=== PATIENT | female | born 1955 | race Caucasian/White ===

== ENCOUNTER 2017-05-19 07:58 | Inpatient (IN) ==
[2017-05-19] MEDS ORDERED: Ondansetron 4 MG/2 ML VIAL IVP ONE ×2 (08:07→11:18)
[2017-05-19] MEDS ORDERED: *HR* HYDROmorphone (PF) 1 MG/ML SYRINGE IVP ONE ×2 (08:07→11:18)
[2017-05-19 08:36] LABS: Basophils % 0.2 %; Eosinophils % 0.2 %; Hematocrit 44.7 % (35.3-44.9); Hemoglobin 14.2 g/dL (11.5-15.4); Immature Granulocytes % 0.5 % (0-4); Lymphocytes % 13.8 %; Mean Corpuscular HGB Conc 31.8 g/dL (31.6-35.5); Mean Corpuscular Hemoglobin 27.3 pg (28.0-33.3); Mean Corpuscular Volume 85.8 fL (83.0-100.0); Mean Platelet Volume 10.1 fL (9.4-12.4); Monocytes % 7.1 %; Neutrophils # 11.2 K/mcL (1.6-8.9); Platelet Count 306 K/mcL (140-400); Red Blood Count 5.21 M/mcL (3.82-4.97); Red Cell Distribution Width 15.7 % (11.5-14.5); Segmented Neutrophils % 78.2 %
--- NOTE | 2017-05-19 08:42 | Emergency Department Note ---
START Narrative - START START: I examined this patient and my medical decision-making was reviewed with the ICT HELP DESK OFFICER/PA/Advanced Practice Nurse/Resident Physician. I agree with the documented findings, disposition and treatment plan as described except to the extent set forth below. I did see the patient immediately upon arrival and also spoke with her and also examined her and also spoke with the paramedics. I also spoke with the family members. The patient presents with left low back pain which began 2 days ago and then resolved and then returned. She does have some chronic back pain from her mattress but this is much worse than usual. Was hypoxemic and is currently tachycardic. Saturation 95% on 3 L. We will have both cardiac evaluation inc a chest x-ray as well as a noncontrast CT scan done emergently. Labs have been drawn. I did review the patient's EKG showing sinus tachycardia with rate of 107, nonspecific ST changes. The patient will be admitted to the hospital. Troponin is pending. Lactate is pending. The patient's blood pressure is stable at this time. She has no abdominal pain subjectively or on my exam and there is no pulsatile abdominal mass. 0840 I did review the patient's lab results as well as CT finding. No evidence of abdominal aortic aneurysm or small bowel instruction but it does look like there is a stone in the neck of the gallbladder and this will discuss further with surgery. Patient does have leukocytosis but no evidence of liver function abnormalities or elevated lipase. Patient will be admitted to the hospital. Chest x-ray is clear without evidence of pulmonary edema 0918
[2017-05-19 09:09] LABS: Alanine Aminotransferase 29 Units/L (0-55); Albumin/Globulin Ratio 0.6 (1.1-2.2); Alkaline Phosphatase 98 Units/L (38-126); Aspartate Amino Transferase 24 Units/L (5-34); BUN/Creatinine Ratio 17 (6-26); Bilirubin,Direct 0.5 mg/dL (0.0-0.5); Bilirubin,Indirect 0.5 mg/dL (0.0-1.2); Blood Urea Nitrogen 14 mg/dL (7-20); Calcium 10.1 mg/dL (8.6-10.8); Carbon Dioxide 26 mEq/L (19-29); Chloride 98 mEq/L (98-109); Globulin 5.2 g/dL (2.4-3.5); Glucose 155 mg/dL (70-99); Osmolality,Calculated 288 (280-300); Potassium 3.4 mEq/L (3.5-4.5); Sodium 137 mEq/L (136-145); Total Protein 8.2 g/dL (6.0-8.3); eGFR For African Americans > 60 (> 60); eGFR For Non-African Americans > 60 (> 60)
[2017-05-19 09:13] LABS: Lipase < 10 Units/L (8-78)
--- NOTE | 2017-05-19 09:16 | Emergency Department Note ---
Disposition Clinical Impression: Acute cholecystitis due to biliary calculus Disposition: Admitted As Inpatient Condition: Fair Referrals: NONE,PCP [Non-Partnered Physician] - Forms: ED Satisfaction Letter Time of Disposition: 10:01 General Adult HPI - General Chief complaint: ED Back Pain/Injury Stated complaint: back pain Time Seen by Provider: 05/19/17 08:03 Source: patient Mode of arrival: EMS Limitations: no limitations Nursing Notes Reviewed: Yes Vital Signs Reviewed: Yes - History of Present Illness HPI Narrative: Ms. Talbot is a 62-year-old female with past medical history of hyperlipidemia and hypertension. She presents to the emergency department with a 2 day history of severe 8 out of 10 sharp back pain. Her symptoms began Monday, however, they resolved later on that day. She has not had an appetite since then. She does state she has had multiple episodes of vomiting and consistent nausea. Her pain resumed last night. At around 10:00, she took Xanax and Advil for her discomfort. She said the Advil provided her with some relief transiently and she was able to go to sleep. Around 4:00 in the morning she woke up with the back pain again. She denies any chest pain or shortness of breath. She also denies any abdominal pain, dysuria, hematuria, hematochezia, diarrhea, or constipation. She has no new lower extremity pain or swelling. Pain Scale: 8 - Related Data Home Medications Medication Instructions Recorded Confirmed ALPRAZolam [Xanax 1 MG Tablet] 1 mg PO TID PRN 05/19/17 05/19/17 Levothyroxine Sodium 150 mcg PO DAILY 05/19/17 05/19/17 Simvastatin [Zocor] 20 mg PO QPM 05/19/17 05/19/17 Torsemide [Torsemide] 5 mg PO DAILY 05/19/17 05/19/17 Valsartan/Hydrochlorothiazide 1 tab PO DAILY 05/19/17 05/19/17 [Diovan Hct 80-12.5 mg Tablet] Allergies Allergy/AdvReac Type Severity Reaction Status Date / Time No Known Allergies Allergy Verified 05/19/17 08:12 Constitutional: Denies: fever, chills Cardiovascular: Denies: chest pain, palpitations, dyspnea on exertion Respiratory: Denies: cough, dyspnea, wheezes, sputum production Gastrointestinal: Reports: nausea, vomiting. Denies: abdominal pain, diarrhea, hematemesis, melena, hematochezia Genitourinary: Denies: urgency, dysuria, frequency, hematuria Musculoskeletal: Reports: back pain. Denies: neck pain Neurological: Denies: headache, weakness, numbness, paresthesias, confusion Past Medical History - Past Medical History Attestation: Yes The following information was validated with the patient. Source: patient Medical history: Reports: hyperlipidemia, hypertension, thyroid disease Psychiatric history: Reports: no psych history - Social History Smoking Status: Former smoker Smokeless Tobacco Status: No Alcohol use: Reports: none Drug use: Reports: none Physical Exam - General Limitations: no limitations General appearance: alert, anxious, in distress - Head Head exam: atraumatic - Eye Eye exam: Present: normal appearance - ENT ENT exam: mucous membranes dry - Respiratory Respiratory exam: Present: normal lung sounds bilaterally. Absent: respiratory distress, wheezes, stridor - Cardiovascular Cardiovascular exam: Present: regular rate, normal rhythm - Abdominal Exam Abdominal exam: Present: soft, Non-Tender - Extremities Exam Extremities exam: Present: normal inspection. Absent: pedal edema - Back Exam Back exam: Present: CVA tenderness (R), CVA tenderness (L) - Neurological Exam Neurological exam: Present: alert, oriented X3 - Skin Skin exam: Present: warm, intact, diaphoresis Course Course Narrative: Ms. Talbot presents in acute distress. We are immediately concerned based on physical exam for pyelonephritis or pancreatitis. However, because of patient' s age and morbid obesity, we will rule out ACS and pulmonary embolism. We also want to rule out aortic dissection or mesenteric ischemia. We also wish to inspect the fidelity of the aorta and abdomen. We will move towards a noncontrast CT scan quickly to rule out any of these pathologies. We will also order basic labs, lipase, lactic acid, and chest x-ray as patient is mildly hypoxic. She denies being on oxygen at home, however she is only [id number] on 3 L of oxygen here. - Reevaluation(s) Reevaluation #1: Ms. Talbot's labs show no acute abnormalities other than an elevated white blood cell count. Her CT scan of her abdomen and pelvis shows evidence of acute cholecystitis. No other abdominal pathologies are noted. We will contact surgery for admission to the hospital. Reevaluation #2: Spoke with Dr. Esparza on surgery service. He will admit the patient to the hospital. Vital Signs Temperature 98.4 F 05/19/17 07:59 Pulse Rate 106 05/19/17 07:59 Respiratory Rate 16 05/19/17 07:59 Blood Pressure 114/54 05/19/17 07:59 O2 Sat by Pulse Oximetry 97 05/19/17 07:59 Temperature 98.4 F 05/19/17 07:59 Pulse Rate 105 05/19/17 09:48 Respiratory Rate 16 05/19/17 09:48 Blood Pressure 134/86 05/19/17 09:48 O2 Sat by Pulse Oximetry 96 05/19/17 09:48 Oxygen Delivery Oxygen Delivery Nasal Cannula Medical Decision Making - Medical Records Medical records reviewed: Yes I reviewed the patient's medical records. - Lab Data Lab results reviewed: Yes I reviewed the patient's lab results. Result diagrams: 05/19/17 08:30 05/19/17 08:30 Lab Results 05/19/17 05/19/17 05/19/17 Range/Units 08:30 08:30 08:30 WBC 14.4 H (4.3-11.1) K/mcL RBC 5.21 H (3.82-4.97) M/mcL Hgb 14.2 (11.5-15.4) g/dL Hct 44.7 (35.3-44.9) % MCV 85.8 (83.0-100.0) fL MCH 27.3 L (28.0-33.3) pg MCHC 31.8 (31.6-35.5) g/dL RDW 15.7 H (11.5-14.5) % Plt Count 306 (140-400) K/mcL MPV 10.1 (9.4-12.4) fL Immature Gran % 0.5 (0-4) % Seg Neutrophils % 78.2 % Lymphocytes % 13.8 % Monocytes % 7.1 % Eosinophils % 0.2 % Basophils % 0.2 % Neutrophils # 11.2 H (1.6-8.9) K/mcL Lymphocytes # 2.0 (0.6-4.6) K/mcL Monocytes # 1.0 (0.0-1.3) K/mcL Eosinophils # 0.0 (0.0-0.6) K/mcL Basophils # 0.0 (0.0-0.2) K/mcL Sodium 137 (136-145) mEq/L Potassium 3.4 L (3.5-4.5) mEq/L Chloride 98 (98-109) mEq/L Carbon Dioxide 26 (19-29) mEq/L BUN 14 (7-20) mg/dL Creatinine 0.83 (0.57-1.11) mg/dL Est GFR ( Amer) > 60 (> 60) Est GFR (Non-Af Amer) > 60 (> 60) BUN/Creatinine Ratio 17 (6-26) Glucose 155 H (70-99) mg/dL Calculated Osmolality 288 (280-300) Lactic Acid (0.5-2.2) mmol/L Calcium 10.1 (8.6-10.8) mg/dL Total Bilirubin 1.0 (0.2-1.2) mg/dL Direct Bilirubin 0.5 (0.0-0.5) mg/dL Indirect Bilirubin 0.5 (0.0-1.2) mg/dL AST 24 (5-34) Units/L ALT 29 (0-55) Units/L Alkaline Phosphatase 98 (38-126) Units/L Troponin I 0.00 (0-0.03) ng/mL Serum Total Protein 8.2 (6.0-8.3) g/dL Albumin 3.0 L (3.5-5.0) g/dL Globulin 5.2 H (2.4-3.5) g/dL Albumin/Globulin Ratio 0.6 L (1.1-2.2) Lipase < 10 (8-78) Units/L 05/19/17 Range/Units 08:30 WBC (4.3-11.1) K/mcL RBC (3.82-4.97) M/mcL Hgb (11.5-15.4) g/dL Hct (35.3-44.9) % MCV (83.0-100.0) fL MCH (28.0-33.3) pg MCHC (31.6-35.5) g/dL RDW (11.5-14.5) % Plt Count (140-400) K/mcL MPV (9.4-12.4) fL Immature Gran % (0-4) % Seg Neutrophils % % Lymphocytes % % Monocytes % % Eosinophils % % Basophils % % Neutrophils # (1.6-8.9) K/mcL Lymphocytes # (0.6-4.6) K/mcL Monocytes # (0.0-1.3) K/mcL Eosinophils # (0.0-0.6) K/mcL Basophils # (0.0-0.2) K/mcL Sodium (136-145) mEq/L Potassium (3.5-4.5) mEq/L Chloride (98-109) mEq/L Carbon Dioxide (19-29) mEq/L BUN (7-20) mg/dL Creatinine (0.57-1.11) mg/dL Est GFR ( Amer) (> 60) Est GFR (Non-Af Amer) (> 60) BUN/Creatinine Ratio (6-26) Glucose (70-99) mg/dL Calculated Osmolality (280-300) Lactic Acid 1.9 (0.5-2.2) mmol/L Calcium (8.6-10.8) mg/dL Total Bilirubin (0.2-1.2) mg/dL Direct Bilirubin (0.0-0.5) mg/dL Indirect Bilirubin (0.0-1.2) mg/dL AST (5-34) Units/L ALT (0-55) Units/L Alkaline Phosphatase (38-126) Units/L Troponin I (0-0.03) ng/mL Serum Total Protein (6.0-8.3) g/dL Albumin (3.5-5.0) g/dL Globulin (2.4-3.5) g/dL Albumin/Globulin Ratio (1.1-2.2) Lipase (8-78) Units/L - Radiology Data Radiology results reviewed: Yes I reviewed the patient's radiology results. Chest X-Ray 05/19/17 08:33 IMPRESSION: No significant findings in the chest. D/ / Carson Paz MD / Carson Paz MD Interpreting Provider: Carson Paz MD Abdomen/Pelvis CT 05/19/17 08:34 IMPRESSION: 1. Cholelithiasis, with stone in the neck of the gallbladder. There is slight pericholecystic stranding, recommend correlation with any clinical findings of acute cholecystitis 2. Hepatic steatosis 3. Mild colonic diverticulosis D/ / Lawson Gallegos MD / Lawson Gallegos MD Interpreting Provider: Lawson Gallegos MD - EKG Data EKG #1 EKG attestation: Yes I reviewed and interpreted this EKG. EKG results narrative: Patient's EKG on May 19 at 8:06 AM shows sinus tachycardia with a rate of 107 bpm. There are no new ischemic changes from her ECG on 12/19/1996 at 5:59 PM.
[2017-05-19] MEDS ORDERED: 0.9 % Sodium Chloride 1,000 ML IVC ONE (09:42)
[2017-05-19] MEDS ORDERED: Piperacillin/Tazobactam 3.375 GM in D5% in Water (Mini-Bag+) 100 ML IVPB ONE (10:02)
[2017-05-19] MEDS ORDERED: Ondansetron 4 MG/2 ML VIAL ONE (11:17)
[2017-05-19] MEDS ORDERED: *HR* HYDROmorphone (PF) 1 MG/ML SYRINGE ONE (11:17)
[2017-05-19 11:29] LABS: Bilirubin,Urine Small (Negative); Blood,Urine Small (Negative); Clarity,Urine Turbid (Clear); Color,Urine Dark Yellow (Yellow); Glucose,Urine (UA) Normal (Normal); Ketones,Urine Trace mg/dL (Negative); Leukocyte Esterase,Urine Moderate (Negative); Nitrite,Urine Negative (Negative); Protein,Urine Trace mg/dL (Neg-Trace); Urobilinogen,Urine Normal (Normal)
[2017-05-19 11:30] LABS: Bacteria,Urine Moderate per hpf (None-Few); Hyaline Casts,Urine None Seen per lpf (None-Few); Squamous Epithelial Cell,Urine Many per lpf (None-Few); WBC,Urine 15-30 per hpf (0-3)
[2017-05-19 11:43] LABS: Amorphous Sediment,Urine Moderate (Few)
[2017-05-19 11:44] LABS: RBC,Urine 0-3 per hpf (0-3)
[2017-05-19] MEDS ORDERED: Naloxone 0.4 MG/ML INJ IVP PRN (12:04)
[2017-05-19] MEDS ORDERED: Ondansetron 4 MG/2 ML VIAL IVP PRN (12:04)
[2017-05-19] MEDS ORDERED: ALPRAZolam 1 MG TABLET PO PRN (12:11)
[2017-05-19] MEDS ORDERED: Acetaminophen 325 MG TABLET PO PRN (12:15)
[2017-05-19] MEDS ORDERED: *HR* OxyCODONE/APAP 5/325 TABLET PO PRN (12:15)
--- NOTE | 2017-05-19 12:24 | General Surg History&Physical ---
<Danita Donahue - Last Filed: 05/19/17 12:18> Date of Encounter: 05/19/17 Time of Encounter: 11:45 Assessment and Plan (1) Acute cholecystitis due to biliary calculus Current Visit: Yes Status: Acute The assessment and plan as outlined above was discussed with the patient and/or family members who expressed understanding and agreement. All questions were answered. Clear liquid diet Nothing by mouth after midnight IV fluids at 100 mL's per hour Supportive care and pain control IV antibiotics-Zosyn Incentive spirometer every 1 hour while awake PPI therapy daily Repeat a.m. labs Risks, benefits, alternatives, expected outcomes have been reviewed with the patient and she is in agreement to proceed to the operating room with Dr. Esparza for a laparoscopic cholecystectomy with cholangiogram in the next 24- 48 hours. (2) Morbid obesity with BMI of 60.0-69.9, adult Current Visit: Yes Status: Chronic The assessment and plan as outlined above was discussed with the patient and/or family members who expressed understanding and agreement. All questions were answered. (3) Hypertension Current Visit: Yes Status: Chronic The assessment and plan as outlined above was discussed with the patient and/or family members who expressed understanding and agreement. All questions were answered. Currently normotensive Medication regimen resumed We will continue to monitor and adjust as necessary Qualifiers: Hypertension type: essential hypertension Qualified Code(s): I10 - Essential (primary) hypertension (4) Hyperlipidemia Current Visit: Yes Status: Chronic The assessment and plan as outlined above was discussed with the patient and/or family members who expressed understanding and agreement. All questions were answered. Resume home medication regimen Qualifiers: Hyperlipidemia type: unspecified Qualified Code(s): E78.5 - Hyperlipidemia , unspecified (5) Hypothyroidism Current Visit: Yes Status: Chronic The assessment and plan as outlined above was discussed with the patient and/or family members who expressed understanding and agreement. All questions were answered. Resume home medication regimen Qualifiers: Hypothyroidism type: unspecified Qualified Code(s): E03.9 - Hypothyroidism , unspecified (6) DVT prophylaxis Current Visit: Yes Status: Acute The assessment and plan as outlined above was discussed with the patient and/or family members who expressed understanding and agreement. All questions were answered. Heparin 5000 units subcutaneous twice daily for DVT prophylaxis History of Present Illness Chief complaint: Back pain HPI: Ms. Talbot is a 62 year old female who presented to the emergency department with a 2 day history of back pain. She states that she had severe nausea and vomiting for 8 hours yesterday. The vomiting was was preceeded by the pain. She describes the pain as a sharp and stabbing pain which is constant and located across her upper back. It is a sharp and stabbing pain. She has never experienced pain like this in the past. She denies any aggravating or alleviating factors. She denies any hematemesis or coffee-ground emesis. She states she is only able to keep down small sips of water. She has no appetite. She denies any bloating. She denies any fevers or chills. She admits to significant heartburn symptoms over the last 48 hours. She denies any changes in bowel habits. She denies any chest pain. She does admit to chronic shortness of breath and states that this is slightly worse than typical. She denies any difficulty with urination. She has had a CAT scan evaluation which shows evidence of a gallstone within the neck of the gallbladder and gallbladder wall thickening. Past Med Surg Social Fam HX - Past Medical History Source: patient, old records reviewed Medical history: hyperlipidemia, hypertension, thyroid disease, other (obesity) Psychiatric history: no psych history - Past Surgical History Surgical History: hysterectomy (partial with single oopherectomy) - Social History Smoking Status: Former smoker Smokeless Tobacco Status: No Alcohol use: none Drug use: none Occupational status: retired Current living situation: Home - Independent, With Family Activity Level: Uses cane/walker - Family History Father Living Status: Age at : 63 Cause of : heart diseaase Hx Family Cardiac Disorders: Yes Mother History Unknown: Yes Daughter Hx Family Medical Disorders: Yes (platelet pooling disorder in daughter and grandaughter) Medications and Allergies ALPRAZolam [Xanax 1 MG Tablet] 1 mg PO TID PRN 05/19/17 [History] Levothyroxine Sodium 150 mcg PO DAILY 05/19/17 [History] Simvastatin [Zocor] 20 mg PO QPM 05/19/17 [History] Torsemide [Torsemide] 5 mg PO DAILY 05/19/17 [History] Valsartan/Hydrochlorothiazide [Diovan Hct 80-12.5 mg Tablet] 1 tab PO DAILY [History] 3 Allergy/AdvReac Type Severity Reaction Status Date / Time No Known Allergies Allergy Verified 05/19/17 08:12 Review of Systems All systems PM: reviewed and no additional remarkable complaints except as stated (in the HPI) All systems PM: A 10-system review of systems was performed and is negative for pertinent findings except as documented above in the HPI. General Surgery Exam Initial Vital Signs Temp Pulse Resp BP Pulse Ox 98.4 F 106 16 114/54 97 05/19/17 07:59 05/19/17 07:59 05/19/17 07:59 05/19/17 07:59 05/19/17 07:59 - General physical appearance well developed, well nourished, no distress, moderate pain, obese - Eyes normal ocular movement - ENT normal mucosa, atraumatic, normocephalic - Neck trachea midline - Respiratory normal respiratory effort, clear to auscultation - Cardiovascular Cardiovascular exam: Present: tachycardia - Abdomen Abdomen general surgery: Present: bowel sounds present, soft, non tender - Integumentary Integumentary general surgery: Present: warm and dry - Neurologic Present: CN 2-12 grossly intact - Psychiatric Psychiatric general surgery: Present: A&Ox3 Results - Labs 05/19/17 08:30 05/19/17 08:30 Abnormal lab results WBC 14.4 K/mcL (4.3-11.1) H 05/19/17 08:30 RBC 5.21 M/mcL (3.82-4.97) H 05/19/17 08:30 MCH 27.3 pg (28.0-33.3) L 05/19/17 08:30 RDW 15.7 % (11.5-14.5) H 05/19/17 08:30 Neutrophils # 11.2 K/mcL (1.6-8.9) H 05/19/17 08:30 Potassium 3.4 mEq/L (3.5-4.5) L 05/19/17 08:30 Glucose 155 mg/dL (70-99) H 05/19/17 08:30 Albumin 3.0 g/dL (3.5-5.0) L 05/19/17 08:30 Globulin 5.2 g/dL (2.4-3.5) H 05/19/17 08:30 Albumin/Globulin Ratio 0.6 (1.1-2.2) L 05/19/17 08:30 Urine Clarity Turbid (Clear) A 05/19/17 11:21 Urine Ketones Trace mg/dL (Negative) H 05/19/17 11:21 Urine Blood Small (Negative) H 05/19/17 11:21 Urine Bilirubin Small (Negative) H 05/19/17 11:21 Ur Leukocyte Esterase Moderate (Negative) H 05/19/17 11:21 Urine Microscopic WBC 15-30 per hpf (0-3) H 05/19/17 11:21 Ur Squamous Epith Cells Many per lpf (None-Few) H 05/19/17 11:21 Amorphous Sediment Moderate (Few) H 05/19/17 11:21 Urine Bacteria Moderate per hpf (None-Few) H 05/19/17 11:21 Ur Culture Indicated? YES (NO) A 05/19/17 11:21 Diabetes panel 05/19/17 Range/Units 08:30 Sodium 137 (136-145) mEq/L Potassium 3.4 L (3.5-4.5) mEq/L Chloride 98 (98-109) mEq/L Carbon Dioxide 26 (19-29) mEq/L BUN 14 (7-20) mg/dL Creatinine 0.83 (0.57-1.11) mg/dL Glucose 155 H (70-99) mg/dL Calcium 10.1 (8.6-10.8) mg/dL AST 24 (5-34) Units/L ALT 29 (0-55) Units/L Alkaline Phosphatase 98 (38-126) Units/L Albumin 3.0 L (3.5-5.0) g/dL Calcium panel 05/19/17 Range/Units 08:30 Calcium 10.1 (8.6-10.8) mg/dL Albumin 3.0 L (3.5-5.0) g/dL Pituitary panel 05/19/17 Range/Units 08:30 Sodium 137 (136-145) mEq/L Potassium 3.4 L (3.5-4.5) mEq/L Chloride 98 (98-109) mEq/L Carbon Dioxide 26 (19-29) mEq/L BUN 14 (7-20) mg/dL Creatinine 0.83 (0.57-1.11) mg/dL Glucose 155 H (70-99) mg/dL Calcium 10.1 (8.6-10.8) mg/dL Adrenal panel 05/19/17 Range/Units 08:30 Sodium 137 (136-145) mEq/L Potassium 3.4 L (3.5-4.5) mEq/L Chloride 98 (98-109) mEq/L Carbon Dioxide 26 (19-29) mEq/L BUN 14 (7-20) mg/dL Creatinine 0.83 (0.57-1.11) mg/dL Glucose 155 H (70-99) mg/dL Calcium 10.1 (8.6-10.8) mg/dL Total Bilirubin 1.0 (0.2-1.2) mg/dL AST 24 (5-34) Units/L ALT 29 (0-55) Units/L Alkaline Phosphatase 98 (38-126) Units/L Albumin 3.0 L (3.5-5.0) g/dL All other labs normal. - Imaging CT scan - abdomen: report reviewed CT scan - pelvis: report reviewed Additional studies: Chest X-Ray 05/19/17 08:33 IMPRESSION: No significant findings in the chest. D/ / Carson Paz MD / Carson Paz MD Interpreting Provider: Carson Paz MD Abdomen/Pelvis CT 05/19/17 08:34 IMPRESSION: 1. Cholelithiasis, with stone in the neck of the gallbladder. There is slight pericholecystic stranding, recommend correlation with any clinical findings of acute cholecystitis 2. Hepatic steatosis 3. Mild colonic diverticulosis D/ / Lawson Gallegos MD / Lawson Gallegos MD Interpreting Provider: Lawson Gallegos MD - Attending Attestation For this encounter, I have reviewed the TRAVELIFT OPERATOR or PA documentation, treatment plan, and medical decision making; and I have had face to face time with this patient. <Marciano Esparza - Last Filed: 05/19/17 16:04> Date of Encounter: 05/19/17 History of Present Illness HPI: Ms. Talbot is a 62 year old female Review of Systems All systems PM: A 10-system review of systems was performed and is negative for pertinent findings except as documented above in the HPI. General Surgery Exam Initial Vital Signs Temp Pulse Resp BP Pulse Ox 98.4 F 106 16 114/54 97 05/19/17 07:59 05/19/17 07:59 05/19/17 07:59 05/19/17 07:59 05/19/17 07:59 Results - Labs 05/19/17 08:30 05/19/17 08:30 Abnormal lab results WBC 14.4 K/mcL (4.3-11.1) H 05/19/17 08:30 RBC 5.21 M/mcL (3.82-4.97) H 05/19/17 08:30 MCH 27.3 pg (28.0-33.3) L 05/19/17 08:30 RDW 15.7 % (11.5-14.5) H 05/19/17 08:30 Neutrophils # 11.2 K/mcL (1.6-8.9) H 05/19/17 08:30 Potassium 3.4 mEq/L (3.5-4.5) L 05/19/17 08:30 Glucose 155 mg/dL (70-99) H 05/19/17 08:30 Albumin 3.0 g/dL (3.5-5.0) L 05/19/17 08:30 Globulin 5.2 g/dL (2.4-3.5) H 05/19/17 08:30 Albumin/Globulin Ratio 0.6 (1.1-2.2) L 05/19/17 08:30 Urine Clarity Turbid (Clear) A 05/19/17 11:21 Urine Ketones Trace mg/dL (Negative) H 05/19/17 11:21 Urine Blood Small (Negative) H 05/19/17 11:21 Urine Bilirubin Small (Negative) H 05/19/17 11:21 Ur Leukocyte Esterase Moderate (Negative) H 05/19/17 11:21 Urine Microscopic WBC 15-30 per hpf (0-3) H 05/19/17 11:21 Ur Squamous Epith Cells Many per lpf (None-Few) H 05/19/17 11:21 Amorphous Sediment Moderate (Few) H 05/19/17 11:21 Urine Bacteria Moderate per hpf (None-Few) H 05/19/17 11:21 Ur Culture Indicated? YES (NO) A 05/19/17 11:21 All other labs normal. - Attending Attestation I reviewed the above assessment and evaluation with the nurse practitioner and agree with the above. Patient's symptoms of upper to mid back pain started 2 days ago which was intermittent and sharp but then resolved until today. She admits to nausea and denies any abdominal pain symptoms. On exam she has no abdominal tenderness. She states that it upper to mid back pain has resolved. No fevers or chills. I personally reviewed the CT scan images and report as well as the laboratory studies. She has evidence of acute cholecystitis likely related to the cystic duct stone at the neck of the cystic duct. There is an additional smaller stone that is even more proximal, beyond the cystic duct. I think it would be appropriate to consider laparoscopic cholecystectomy with intraoperative cholangio-gram within the next 24-48 hours. Discussed with the patient and family and they agree to the above plan.
--- NOTE | 2017-05-19 14:23 | Anesthesia Evaluation PreOp ---
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 CENTER OPERATOR History: Seizures (not medically treated) Other Medical History: Hepatic (elevated LFT's), Diabetes Type II, GERD, Other ( obesity BMI=62.2) Anesthesia History: No Prior Anesthetic Complications, Past Anesthesia Alcohol Use: none Drug use: none Medications and Allergies ALPRAZolam [Xanax 1 MG Tablet] 1 mg PO TID PRN 05/19/17 [History] Levothyroxine Sodium 150 mcg PO DAILY 05/19/17 [History] Simvastatin [Zocor] 20 mg PO QPM 05/19/17 [History] Torsemide [Torsemide] 5 mg PO DAILY 05/19/17 [History] Valsartan/Hydrochlorothiazide [Diovan Hct 80-12.5 mg Tablet] 1 tab PO DAILY [History] 3 Allergy/AdvReac Type Severity Reaction Status Date / Time No Known Allergies Allergy Verified 05/19/17 08:12 - Meds/Allergy Pre-op Review Medications Reviewed: Yes Allergies Reviewed: Yes Beta Blockers on Current Med List: No Anesthesia Results - Labs 05/19/17 08:30 05/19/17 08:30 - Imaging EKG: report reviewed (08/23/2016 SR) Anesthesia Exam O2 Sat Height 1.6 m Weight 159.211 kg O2 Sat by Pulse Oximetry 95 O2 Sat by Pulse Oximetry 97 O2 Sat by Pulse Oximetry 96 O2 Sat by Pulse Oximetry 96 O2 Sat by Pulse Oximetry 94 O2 Sat by Pulse Oximetry 94 O2 Sat by Pulse Oximetry 97 Vital Signs Temp Pulse Resp BP Pulse Ox 98.4 F 106 16 114/54 97 05/19/17 07:59 05/19/17 07:59 05/19/17 07:59 05/19/17 07:59 05/19/17 07:59 Height: 5'3'' Weight: 351 lbs NPO (# of Hours): 8 Pain Scale: 0 Pain Scale Used: Numeric (1 - 10) - HEENT Pupil (Motor): EOMI Mallampati: III Teeth: Normal Oral Opening: Greater than 3 - CONTROL CENTER OPERATOR LOC: Oriented CONTROL CENTER OPERATOR Motor: Normal RUE, Normal LUE, Normal RLE, Normal LLE, Normal Face CONTROL CENTER OPERATOR Sensory: Normal: RUE, LUE, RLE, LLE, Face - Cardiac Rhythm: Regular Murmur: None
[2017-05-19] MEDS: *HR* HYDROmorphone (PF) 1 MG/ML SYRINGE IVP PRN ×3 (15:00→23:22)
[2017-05-19] MEDS: 0.9 % Sodium Chloride 1,000 ML IVC SCH (16:42)
[2017-05-19] MEDS: Piperacillin/Tazobactam 3.375 GM in D5% in Water (Mini-Bag+) 100 ML IVPB SCH ×2 (16:47→23:22)
[2017-05-19] MEDS: *HR* Heparin 5,000 UNIT/ML VIAL SQ SCH (18:22)
[2017-05-19] MEDS ORDERED: *HR* Promethazine 25 MG/ML VIAL IVP PRN (18:35)
--- NOTE | 2017-05-19 19:39 | Anesthesia Evaluation PreOp ---
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 History: Denies Any Significant HX Other Medical History: Other (BMI 62) Anesthesia History: No Prior Anesthetic Complications, Past Anesthesia (partial hysterectomy with single oopherectomy) Alcohol Use: none Drug use: none Medications and Allergies ALPRAZolam [Xanax 1 MG Tablet] 1 mg PO TID PRN 05/19/17 [History] Levothyroxine Sodium 150 mcg PO DAILY 05/19/17 [History] Simvastatin [Zocor] 20 mg PO QPM 05/19/17 [History] Torsemide [Torsemide] 5 mg PO DAILY 05/19/17 [History] Valsartan/Hydrochlorothiazide [Diovan Hct 80-12.5 mg Tablet] 1 tab PO DAILY [History] 3 Allergy/AdvReac Type Severity Reaction Status Date / Time No Known Allergies Allergy Verified 05/19/17 08:12 - Meds/Allergy Pre-op Review Medications Reviewed: Yes Allergies Reviewed: Yes Beta Blockers on Current Med List: No Anesthesia Results - Labs 05/19/17 08:30 05/19/17 08:30 Anesthesia Exam Last Vital Signs Temp 99.3 F 05/19/17 19:10 Pulse 92 05/19/17 19:10 Resp 16 05/19/17 19:10 BP 117/67 05/19/17 19:10 Pulse Ox 94 05/19/17 19:10 Weight: 159 kg - HEENT Pupil (Motor): Pupils equal, EOMI Mallampati: III Teeth: Edentulous Denture Type: Upper: Complete, Lower: Complete Oral Opening: Greater than 3 - POULTRY BUYER LOC: Oriented POULTRY BUYER Motor: Normal RUE, Normal LUE, Normal RLE, Normal LLE, Normal Face - Cardiac Rhythm: Regular Murmur: None - Pulmonary Breath Sounds: bilateral Clear Respiratory Effort: Symmetrical Anesthesia Assess/Plan ASA Score: 3 (HTN, BMI 62) Modified [place] Scale for Level of Consciousness: Cooperative, oriented, and tranquil Anesthetic Plan: General, Precautions (patient has been vomiting on the floor - will likely require pre-op anti-emetics and possibly RSI induction) Monitoring Plan: Standard Monitors Recovery Plan: PACU
[2017-05-20] MEDS: 0.9 % Sodium Chloride 1,000 ML IVC SCH ×3 (02:32→23:10)
[2017-05-20] MEDS: *HR* HYDROmorphone (PF) 1 MG/ML SYRINGE IVP PRN (02:32)
[2017-05-20] MEDS: *HR* Heparin 5,000 UNIT/ML VIAL SQ SCH ×2 (03:46→17:34)
[2017-05-20] MEDS: Piperacillin/Tazobactam 3.375 GM in D5% in Water (Mini-Bag+) 100 ML IVPB SCH ×3 (07:12→22:58)
[2017-05-20] MEDS ORDERED: *HR* Rocuronium Bromide 50 MG/5 ML VIAL ONE (07:47)
[2017-05-20] MEDS ORDERED: Lidocaine -MPF 4% 5 ML AMPUL ONE (07:47)
[2017-05-20] MEDS ORDERED: *HR* Succinylcholine 200 MG/10 ML VIAL IVP ONE (07:47)
[2017-05-20] MEDS ORDERED: *HR* Propofol 200 MG/20 ML VIAL IVP ONE (07:47)
[2017-05-20] MEDS ORDERED: *HR* FentaNYL (PF) 100 MCG/2 ML VIAL ONE (07:47)
[2017-05-20] MEDS ORDERED: Lidocaine -MPF 2% 2 ML VIAL ONE (07:47)
[2017-05-20] MEDS ORDERED: *HR* Midazolam HCl 2 MG/2 ML VIAL ONE (07:47)
[2017-05-20] MEDS ORDERED: Ringers Solution, Lactated 1,000 ML ONE (08:16)
[2017-05-20 08:17] LABS: Basophils % 0.2 %; Eosinophils # 0.1 K/mcL (0.0-0.6); Eosinophils % 0.4 %; Hematocrit 44.1 % (35.3-44.9); Hemoglobin 13.4 g/dL (11.5-15.4); Immature Granulocytes % 0.8 % (0-4); Lymphocytes # 2.1 K/mcL (0.6-4.6); Lymphocytes % 13.5 %; Mean Corpuscular HGB Conc 30.4 g/dL (31.6-35.5); Mean Corpuscular Hemoglobin 27.1 pg (28.0-33.3); Mean Corpuscular Volume 89.1 fL (83.0-100.0); Mean Platelet Volume 10.5 fL (9.4-12.4); Monocytes # 1.5 K/mcL (0.0-1.3); Monocytes % 9.2 %; Neutrophils # 11.9 K/mcL (1.6-8.9); Platelet Count 256 K/mcL (140-400); Red Blood Count 4.95 M/mcL (3.82-4.97); Red Cell Distribution Width 16.1 % (11.5-14.5); Segmented Neutrophils % 75.9 %
[2017-05-20] MEDS ORDERED: Acetaminophen IV 1,000 MG/100 ML INFUS..BTL ONE (08:51)
[2017-05-20] MEDS ORDERED: Valsartan 80 MG TABLET PO SCH (09:00)
[2017-05-20] MEDS ORDERED: hydroCHLOROthiazide 25 MG TABLET PO SCH (09:00)
[2017-05-20] MEDS ORDERED: Torsemide 20 MG TABLET PO SCH (09:00)
[2017-05-20 09:01] LABS: Albumin 2.9 g/dL (3.5-5.0); Albumin/Globulin Ratio 0.6 (1.1-2.2); Bilirubin,Direct 0.9 mg/dL (0.0-0.5); Bilirubin,Indirect 0.7 mg/dL (0.0-1.2); Calcium 9.1 mg/dL (8.6-10.8); Globulin 4.6 g/dL (2.4-3.5); Potassium 3.5 mEq/L (3.5-4.5); Total Protein 7.5 g/dL (6.0-8.3)
[2017-05-20 09:06] LABS: Bilirubin,Total 1.6 mg/dL (0.2-1.2)
[2017-05-20] MEDS ORDERED: *HR* Phenylephrine 10 MG/ML VIAL ONE (09:21)
[2017-05-20] MEDS ORDERED: Dexamethasone 4 MG/ML VIAL ONE (09:27)
[2017-05-20] MEDS ORDERED: Ondansetron 4 MG/2 ML VIAL ONE (09:27)
--- NOTE | 2017-05-20 09:56 | Electrocardiograph Report ---
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
[2017-05-20] MEDS ORDERED: *HR* HYDROmorphone 2 MG/ML SYRINGE ONE (10:48)
[2017-05-20] MEDS ORDERED: Ketorolac 30 MG/ML VIAL ONE (10:49)
[2017-05-20] MEDS ORDERED: Neostigmine Methylsulfate 3 MG/3 ML SYRINGE ONE ×2 (10:51→11:08)
--- NOTE | 2017-05-20 11:00 | Operative Note ---
Date of procedure: 05/20/17 Pre-op diagnosis: Acute cholecystitis Post-op diagnosis: same Procedure: Laparoscopic cholecystctomy, additional time 45 minutes Anesthesia: EVON Surgeon: Marciano Esparza Service Now Developer: Rosita Erwin Estimated blood loss (cc): 20 Specimen: gallbladder and contents Condition: stable Disposition: PACU Procedure in Detail: Date of surgery: 05/20/17 After properly identifying the patient, the patient was brought to the operating room and placed in the supine position. After proper IV sedation was achieved followed by general endotracheal intubation, the patient's abdomen was prepped and draped in a normal sterile fashion. A timeout was performed noting the patient's name and type of procedure to be performed. A supraumbilical incision with an 11 blade scalpel was made down to the level of the rectus fascia. The rectus fascia was incised and the abdomen was entered and a 12 mm port was placed through the incision. The abdomen was insufflated with carbon dioxide and a laparoscopic camera was placed through the port which showed no injury to the intra-abdominal organs upon entry. A subxiphoid 5 mm port and a right subcostal margin 5 mm port were then placed under direct camera visualization. The patient was placed in a reverse Trendelenburg position. The gallbladder was unable to be identified due to the patient's body habitus; due to this fact a 15 blade scalpel was used to make an incision approximately 10 cm superior to the umbilicus along the midline followed by placement of a 12 mm port under direct camera visualization. The laparoscopic camera was then placed through this new port which did allow for better visualization of the gallbladder which was distended and thickened, consistent with acute cholecystitis. The gallbladder was decompressed with a laparoscopic needle decompression device which allowed for the removal of approximately 50 mL of hydrop fluid. This allowed for better grasping of the gallbladder with traction superiorly/ anteriorly. The inflamed peritoneal covering overlying the cystic duct and cystic artery were carefully dissect away with the [place] dissector. There was significant inflammation surrounding this region, however the cystic duct could be visualized and a laparoscopic clip was placed distally along the cystic duct near the infundibulum. The cystic duct itself appeared to be very short and an attempt at performing a laparoscopic cholangiogram was tried, but there was leaking noted upon placement of the cholangiocatheter through the small opening created in the cystic duct just proximal to the clip. The leak was unable to be controlled and because of that and the short segment of the cystic duct the decision was then made to abandon the laparoscopic cholangiogram procedure and formally clip the cystic duct with a laparascopic clip and incise it with laparoscopic scissors. The cystic artery was likewise identified, clipped laparoscopic clips, and incised with laparoscopic scissors. Total time for the dissection due to the acute inflammation was 45-50 minutes. The gallbladder was carefully dissected away from the gallbladder fossa with Bovie cauterization while Bovie cauterization was used to maintain hemostasis. Once the gallbladder was dissected free the gallbladder fossa was reinspected for hemostasis which was maintained. The gallbladder was then removed from the abdomen via an Endobag. Re-visualization demonstrated mantainence of hemostasis and all ports were then removed from the abdomen after the abdomen was desufflated. The rectus fascia for the supraumbilical incision was reapproximated with a [id number] 0 Vicryl suture. The subcutaneous tissue was reapproximated with interrupted 3-0 Vicryl sutures. The epidermal and dermal layers for the remaining incisions were reapproximated with 4-0 Monocryl sutures. Needle, sponge, and instrument counts were correct 2 and the incisions were covered with Steri-Strips and Band-Aids. The patient was aroused from IV sedation, extubated in the operating room without complication, and transported to the recovery room in stable condition
[2017-05-20] MEDS ORDERED: *HR* Labetalol 20 MG/4 ML SYRINGE IVP PRN (12:00)
[2017-05-20] MEDS ORDERED: *HR* HYDROmorphone (PF) 1 MG/ML SYRINGE IVP PRN ×2 (12:00→13:41)
[2017-05-20] MEDS ORDERED: *HR* Promethazine 25 MG/ML VIAL IVP PRN ×2 (12:00→13:41)
--- NOTE | 2017-05-20 13:28 | Anesthesia Evaluation Post Op ---
Date of Encounter: 05/20/17 Time of Encounter: 12:25 - Vital Signs Vital Signs: Vital Signs/O2 Sat/Glucose, Most Current Temp Pulse Resp BP Pulse Ox 05/20/17 12:31 97.9 F 92 17 93/61 93 05/20/17 12:14 92 17 99/63 93 05/20/17 12:04 98.7 F 93 17 118/52 92 05/20/17 11:54 93 18 110/67 94 05/20/17 11:44 93 16 104/51 93 05/20/17 11:34 99.5 F 92 16 112/51 92 - Lungs Lungs: Clear Ascult./Percussion - Airway Airway: Non-obstructed - Cardiovascular Regular Rate - Mental Status Mental Status: Alert & Oriented, Answers Appropriately - Pain Pain Scale: 5 Pain Scale used: Numeric (1 - 10) - Nausea Vomiting Nausea Vomiting: Not Present - Hydration Hydration: NPO, Has not voided - Discharge PostOp Status: Transfer Patient to floor Anes Supervising Prov Stmt: Pt seen/evaluated, VSS And pt has met criteria for discharge to floor. - MD Tamera
[2017-05-20] MEDS ORDERED: Ondansetron 4 MG/2 ML VIAL IVP PRN (13:41)
[2017-05-20] MEDS ORDERED: ALPRAZolam 1 MG TABLET PO PRN (13:41)
[2017-05-20] MEDS ORDERED: Acetaminophen 325 MG TABLET PO PRN (13:41)
[2017-05-20] MEDS ORDERED: Naloxone 0.4 MG/ML INJ IVP PRN (13:41)
[2017-05-20] MEDS: *HR* OxyCODONE/APAP 5/325 TABLET PO PRN (22:27)
[2017-05-21] MEDS: *HR* OxyCODONE/APAP 5/325 TABLET PO PRN (04:52)
[2017-05-21] MEDS: *HR* Heparin 5,000 UNIT/ML VIAL SQ SCH (05:02)
[2017-05-21 05:08] LABS: Basophils % 0.1 %; Hematocrit 36.7 % (35.3-44.9); Hemoglobin 11.3 g/dL (11.5-15.4); Immature Granulocytes % 0.8 % (0-4); Lymphocytes # 1.6 K/mcL (0.6-4.6); Lymphocytes % 12.3 %; Mean Corpuscular HGB Conc 30.8 g/dL (31.6-35.5); Mean Corpuscular Volume 87.6 fL (83.0-100.0); Mean Platelet Volume 10.3 fL (9.4-12.4); Monocytes % 7.6 %; Neutrophils # 10.5 K/mcL (1.6-8.9); Platelet Count 268 K/mcL (140-400); Red Blood Count 4.19 M/mcL (3.82-4.97); Red Cell Distribution Width 15.9 % (11.5-14.5); Segmented Neutrophils % 79.2 %
[2017-05-21 05:26] LABS: Alanine Aminotransferase 93 Units/L (0-55); Albumin/Globulin Ratio 0.4 (1.1-2.2); Alkaline Phosphatase 96 Units/L (38-126); Aspartate Amino Transferase 70 Units/L (5-34); BUN/Creatinine Ratio 23 (6-26); Bilirubin,Direct 0.6 mg/dL (0.0-0.5); Bilirubin,Indirect 0.3 mg/dL (0.0-1.2); Bilirubin,Total 0.9 mg/dL (0.2-1.2); Blood Urea Nitrogen 23 mg/dL (7-20); Calcium 8.7 mg/dL (8.6-10.8); Carbon Dioxide 26 mEq/L (19-29); Chloride 102 mEq/L (98-109); Globulin 4.8 g/dL (2.4-3.5); Glucose 101 mg/dL (70-99); Osmolality,Calculated 286 (280-300); Potassium 3.6 mEq/L (3.5-4.5); Sodium 136 mEq/L (136-145); Total Protein 6.9 g/dL (6.0-8.3); eGFR For African Americans > 60 (> 60); eGFR For Non-African Americans 55 (> 60)
[2017-05-21 05:42] LABS: Albumin 2.1 g/dL (3.5-5.0)
[2017-05-21 07:01] VITALS: BP 93/61
[2017-05-21] MEDS: Piperacillin/Tazobactam 3.375 GM in D5% in Water (Mini-Bag+) 100 ML IVPB SCH (08:39)
--- NOTE | 2017-05-21 08:45 | Discharge Summary ---
Date of Encounter: 05/21/17 Time of Encounter: 08:45 - Discharge Diagnosis (1) Acute cholecystitis due to biliary calculus Priority: Primary Status: Acute (2) Morbid obesity with BMI of 60.0-69.9, adult Priority: Secondary Status: Chronic (3) Hypertension Priority: Secondary Status: Chronic Qualifiers: Hypertension type: essential hypertension Qualified Code(s): I10 - Essential (primary) hypertension (4) Hyperlipidemia Priority: Secondary Status: Chronic Qualifiers: Hyperlipidemia type: unspecified Qualified Code(s): E78.5 - Hyperlipidemia , unspecified (5) Hypothyroidism Priority: Secondary Status: Chronic Qualifiers: Hypothyroidism type: unspecified Qualified Code(s): E03.9 - Hypothyroidism , unspecified - Discharge Medications Prescriptions: OxyCODONE/APAP 5/325 [Percocet 5/325 MG] 1 each PO Q6HR PRN #26 tablet PRN Reason: Pain Amoxicillin/Clavulanate [Augmentin] 875 mg PO BIDWM #10 tablet Home Medications: ALPRAZolam [Xanax 1 MG Tablet] 1 mg PO TID PRN 05/19/17 [History] Levothyroxine Sodium 150 mcg PO DAILY 05/19/17 [History] Simvastatin [Zocor] 20 mg PO QPM 05/19/17 [History] Torsemide [Torsemide] 5 mg PO DAILY 05/19/17 [History] Valsartan/Hydrochlorothiazide [Diovan Hct 80-12.5 mg Tablet] 1 tab PO DAILY [History] Amoxicillin/Clavulanate [Augmentin] 875 mg PO BIDWM #10 tablet 05/21/17 [Rx] OxyCODONE/APAP 5/325 [Percocet 5/325 MG] 1 each PO Q6HR PRN #26 tablet 05/21/17 [Rx] Allergies/Adverse Reactions: 3 Allergy/AdvReac Type Severity Reaction Status Date / Time No Known Allergies Allergy Verified 05/19/17 08:12 General Surgery Exam Initial Vital Signs Temp Pulse Resp BP Pulse Ox 98.4 F 106 16 114/54 97 05/19/17 07:59 05/19/17 07:59 05/19/17 07:59 05/19/17 07:59 05/19/17 07:59 - Abdomen Abdomen general surgery: Present: bowel sounds present, soft, tender (Mild incisional pain to palpation. Incisions/Band-Aids CDI.) Date of admission: 05/19/17 13:10 Primary care physician: Braxton Carter Jr, MD Discharging clinician: Marciano Esparza Anticipated date of discharge: 05/21/17 - Patient Status Disposition: Home, Self-Care Condition: Fair Overall status at discharge: patient is progressing back to baseline - Discharge Instructions Instructions: Laparoscopic Cholecystectomy (DC), Chronic Hypertension (DC), Hypothyroidism (DC) Follow Up With: Braxton Carter Jr, MD [Primary Care Provider] - - Hospital Course Hospital course: Ms. Talbot is a 62 year old female with a past medical history significant for morbid obesity, hypertension, hyperlipidemia who presented to [facility] with symptoms of epigastric right upper quadrant pain consistent with acute cholecystitis. She underwent a laparoscopic cholecystectomy on 05/20/2017 and was able to tolerate the procedure without difficulty. Over the next 24 hours she was able to tolerate oral diet because of overlying improvement was able to be discharged home on postoperative day 1 with instructions to follow-up with [facility] in 2 weeks. Time spent discussing smoking cessation with patient: 3 to 10 minutes - Time Spent with Patient Total time spent providing and/or coordinating discharge services: Less than 30 minutes Labs on day of discharge: Labs from last 24 hours 05/21/17 05/21/17 05/20/17 04:34 04:34 07:08 WBC 13.3 H RBC 4.19 Hgb 11.3 L D Hct 36.7 MCV 87.6 MCH 27.0 L MCHC 30.8 L RDW 15.9 H Plt Count 268 MPV 10.3 Immature Gran % 0.8 Seg Neutrophils % 79.2 Lymphocytes % 12.3 Monocytes % 7.6 Eosinophils % 0.0 Basophils % 0.1 Neutrophils # 10.5 H Lymphocytes # 1.6 Monocytes # 1.0 Eosinophils # 0.0 Basophils # 0.0 Sodium 136 136 Potassium 3.6 3.5 Chloride 102 98 Carbon Dioxide 26 26 BUN 23 H 18 Creatinine 1.02 1.31 H D Est GFR ( Amer) > 60 50 L Est GFR (Non-Af Amer) 55 L 41 L BUN/Creatinine Ratio 23 14 Glucose 101 H 90 Calculated Osmolality 286 283 Calcium 8.7 9.1 Total Bilirubin 0.9 1.6 H D Direct Bilirubin 0.6 H 0.9 H Indirect Bilirubin 0.3 0.7 AST 70 H 50 H ALT 93 H 65 H Alkaline Phosphatase 96 103 Serum Total Protein 6.9 7.5 Albumin 2.1 L D 2.9 L Globulin 4.8 H 4.6 H Albumin/Globulin Ratio 0.4 L 0.6 L 05/20/17 07:08 WBC 15.7 H RBC 4.95 Hgb 13.4 Hct 44.1 MCV 89.1 MCH 27.1 L MCHC 30.4 L RDW 16.1 H Plt Count 256 MPV 10.5 Immature Gran % 0.8 Seg Neutrophils % 75.9 Lymphocytes % 13.5 Monocytes % 9.2 Eosinophils % 0.4 Basophils % 0.2 Neutrophils # 11.9 H Lymphocytes # 2.1 Monocytes # 1.5 H Eosinophils # 0.1 Basophils # 0.0 Sodium Potassium Chloride Carbon Dioxide BUN Creatinine Est GFR ( Amer) Est GFR (Non-Af Amer) BUN/Creatinine Ratio Glucose Calculated Osmolality Calcium Total Bilirubin Direct Bilirubin Indirect Bilirubin AST ALT Alkaline Phosphatase Serum Total Protein Albumin Globulin Albumin/Globulin Ratio
[2017-05-21] MEDS ORDERED: Valsartan 80 MG TABLET PO SCH (09:00)
[2017-05-21] MEDS ORDERED: hydroCHLOROthiazide 25 MG TABLET PO SCH (09:00)
[2017-05-21] MEDS ORDERED: Torsemide 20 MG TABLET PO SCH (09:00)
== END 2017-05-21 13:22 | disposition home or self-care (01) | DRG 418 ==
LOC: EMEROO 07:58 → 3ANU 07:58 → OBSVTOIN 13:10 → 3ANU 13:29
PROVIDERS: ADMIT Surgery; ATTEND Surgery